=== PATIENT | male | born 1940 | race Asian ===

== ENCOUNTER 2020-09-20 08:04 | Inpatient (IN) | payer OTHER ==
[2020-09-20 08:36] LABS: BASO % 0.6 % (0-2.0); EOS % 1.5 % (0-4.5); HEMATOCRIT 37.5 % (35.4-49); HEMOGLOBIN 12.3 GM/dL (11.7-16.9); LYMPH % 13.3 % (8-40); MCH 29.9 pg (25.7-33.7); MCHC 32.9 g/dl (32.0-35.9); MEAN CELL VOLUME 90.7 fl (80-96); MEAN PLT VOLUME 9.5 fl (7.5-11.1); MONO % 3.8 % (3.8-10.2); NEUT % 80.8 % (42.8-82.8); PLATELET COUNT 144 10^3/uL (134-434); RBC 4.13 M/mm3 (4.00-5.60); WHITE BLOOD COUNT 8.7 K/mm3 (4.0-10.0)
[2020-09-20 08:43] LABS: INR 1.02 (0.83-1.09); PROTHROMBIN TIME (PATIENT) 12.5 SEC (9.7-13.0)
[2020-09-20 08:46] LABS: ACTIVATED PTT 24.1 SECONDS (25.2-36.5)
[2020-09-20 09:04] LABS: ALBUMIN 3.7 g/dl (3.4-5.0); BLOOD UREA NITROGEN 54.3 mg/dL (7-18); CALCIUM 9.4 mg/dL (8.5-10.1)
[2020-09-20 09:06] LABS: CREATININE 2.8 mg/dL (0.55-1.3)
[2020-09-20 09:08] LABS: BILIRUBIN,TOTAL 0.6 mg/dL (0.2-1); TOT PROT 6.8 g/dl (6.4-8.2)
[2020-09-20 09:11] LABS: N-TERMINAL BNP 1956.1 pg/ml (5-450)
[2020-09-20] MEDS ORDERED: GLUCAGON 1 MG KIT IVPUSH ONE ×2 (09:37→10:24)
[2020-09-20] MEDS ORDERED: ONDANSETRON 4 MG/2 ML VIAL IVPUSH ONE (09:37)
[2020-09-20] MEDS ORDERED: CALCIUM GLUCONATE 10% - 1,000 MG/10 ML VIAL IVPUSH ONE ×2 (09:39→09:49)
[2020-09-20] MEDS ORDERED: ONDANSETRON 4 MG/2 ML VIAL ONE (09:39)
[2020-09-20] MEDS ORDERED: ATROPINE SULFATE 1 MG/10 ML DISP.SYRIN IVPUSH ONE (09:46)
[2020-09-20] MEDS ORDERED: CALCIUM GLUCONATE 10% - 1,000 MG/10 ML VIAL ONE ×2 (09:47→10:01)
[2020-09-20] MEDS ORDERED: ATROPINE SULFATE 1 MG/10 ML DISP.SYRIN ONE (09:47)
[2020-09-20] MEDS ORDERED: DEXTROSE 50%-WATER - 25 GM/50 ML VIAL IVPUSH PRN (10:12)
[2020-09-20] MEDS ORDERED: INSULIN REGULAR 100 UNITS in SODIUM CHLORIDE 99 ML IVPB SCH (10:15)
[2020-09-20] MEDS ORDERED: DEXTROSE 10%-WATER - 1,000 ML IV SCH (10:15)
[2020-09-20] MEDS ORDERED: GLUCAGON IVPB SCH (10:45)
[2020-09-20] MEDS ORDERED: WATER IVPB SCH (10:45)
[2020-09-20] MEDS ORDERED: DEXTROSE 5% IVPB SCH (10:45)
[2020-09-20 11:42] LABS: MAGNESIUM 1.7 mg/dL (1.8-2.4)
[2020-09-20] MEDS ORDERED: MAGNESIUM SULF 50% (8.12 MEQ/2 ML-1 GM VIAL) IVPB ONE (11:50)
[2020-09-20 11:51] LABS: N-TERMINAL BNP 1369.1 pg/ml (5-450)
[2020-09-20 12:14] LABS: CHLORIDE 104 mmol/L (98-107); SODIUM 133 mmol/L (136-145)
[2020-09-20 12:15] LABS: ANION GAP 10 MMOL/L (8-16); BLOOD UREA NITROGEN 49.9 mg/dL (7-18); CALCIUM 8.8 mg/dL (8.5-10.1); CO2 19 mmol/L (21-32)
[2020-09-20 12:20] LABS: CREATININE 2.6 mg/dL (0.55-1.3); GLUCOSE,RANDOM 538 mg/dL (74-106)
[2020-09-20] MEDS: LACTATED RINGERS SOLUTION 1,000 ML/1,000 ML INFUS.BAG IV SCH (14:15)
[2020-09-20 14:41] LABS: CHLORIDE 107 mmol/L (98-107); SODIUM 135 mmol/L (136-145)
[2020-09-20 14:44] LABS: ANION GAP 11 MMOL/L (8-16); BLOOD UREA NITROGEN 46.1 mg/dL (7-18); CO2 17 mmol/L (21-32)
[2020-09-20 14:48] LABS: CREATININE 2.4 mg/dL (0.55-1.3)
[2020-09-20 14:51] LABS: CALCIUM 7.2 mg/dL (8.5-10.1); GLUCOSE,RANDOM 521 mg/dL (74-106)
[2020-09-20] MEDS: HEPARIN NA (PORCINE) 5,000 UNITS/ML 1ML VIAL SQ SCH ×2 (15:00→22:17)
[2020-09-20] MEDS ORDERED: INSULIN SLIDING SCALE (NOVOLOG) 1 VIAL SQ SCH ×2 (15:30)
[2020-09-20] MEDS ORDERED: DEXTROSE 50%-WATER 25 GM/50 ML DISP.SYRIN ONE (20:40)
[2020-09-20] MEDS ORDERED: DEXTROSE 50%-WATER 25 GM/50 ML DISP.SYRIN IVPUSH PRN (21:14)
[2020-09-20] MEDS ORDERED: DOPAMINE 400 MG/D5W - 400,000 MCG/250 ML INFUS.BAG IVPB SCH ×2 (22:02→22:15)
[2020-09-20] MEDS: CHLORHEXIDINE GLUCONATE 4% CLEANSER FOR DECOLONIZATION TP SCH (22:17)
[2020-09-20] MEDS: MUPIROCIN 2% TOPICAL OINTMENT FOR DECOLONIZATION NS SCH (22:17)
[2020-09-20] MEDS: ATORVASTATIN CA 10 MG TABLET (FP) PO SCH (22:18)
[2020-09-21] MEDS ORDERED: NOREPINEPHRINE NS PREMIX 8,000 MCG/500 ML BAG IVPB SCH
[2020-09-21] MEDS: LACTATED RINGERS SOLUTION 1,000 ML/1,000 ML INFUS.BAG IV SCH ×3 (02:03→20:53)
[2020-09-21 02:23] LABS: EPI CELLS 12 /uL (0-25.1); HYALINE CASTS 2 /uL (0-3.1); URINE APPEARANCE CLOUDY; URINE BACTERIA 14 /uL (0-1359); URINE BILIRUBIN NEGATIVE (NEGATIVE); URINE COLOR DK YELLOW; URINE GLUCOSE (UA) 3+ (NEGATIVE); URINE KETONE NEGATIVE (NEGATIVE); URINE LEUK ESTERASE NEGATIVE (NEGATIVE); URINE NITRITE NEGATIVE (NEGATIVE); URINE PROTEIN 1+ (NEGATIVE); URINE RBC 17 /uL (0-23.9); URINE UROBILINOGEN 0.2 mg/dL (0.2-1.0); URINE WBC 13 /uL (0-25.8)
[2020-09-21] MEDS: HEPARIN NA (PORCINE) 5,000 UNITS/ML 1ML VIAL SQ SCH ×3 (06:00→22:42)
[2020-09-21 07:11] LABS: BASO % 0.1 % (0-2.0); EOS % 0.1 % (0-4.5); HEMATOCRIT 35.5 % (35.4-49); HEMOGLOBIN 11.6 GM/dL (11.7-16.9); MCH 29.5 pg (25.7-33.7); MCHC 32.7 g/dl (32.0-35.9); MEAN CELL VOLUME 90.2 fl (80-96); MEAN PLT VOLUME 8.9 fl (7.5-11.1); MONO % 9.8 % (3.8-10.2); PLATELET COUNT 140 10^3/uL (134-434); RBC 3.94 M/mm3 (4.00-5.60); RDW 13.4 % (11.9-15.9); WHITE BLOOD COUNT 13.9 K/mm3 (4.0-10.0)
[2020-09-21 07:17] LABS: INR 1.02 (0.83-1.09); PROTHROMBIN TIME (PATIENT) 12.5 SEC (9.7-13.0)
[2020-09-21 07:19] LABS: BLOOD UREA NITROGEN 56.9 mg/dL (7-18); MAGNESIUM 1.5 mg/dL (1.8-2.4)
[2020-09-21 07:22] LABS: CREATININE 2.4 mg/dL (0.55-1.3); PHOSPHOROUS 4.3 mg/dL (2.5-4.9)
[2020-09-21 07:23] LABS: BILIRUBIN,TOTAL 0.6 mg/dL (0.2-1)
[2020-09-21 07:24] LABS: TOT PROT 5.6 g/dl (6.4-8.2)
[2020-09-21 07:33] LABS: ALBUMIN 2.9 g/dl (3.4-5.0); CALCIUM 8.3 mg/dL (8.5-10.1)
[2020-09-21] MEDS ORDERED: PT OWN MED DRAWER 7, Y5N ONE (10:58)
[2020-09-21] MEDS: ASPIRIN COATED 81 MG TABLET.EC PO SCH (10:59)
[2020-09-21] MEDS: MULTIVITAMINS (DAILY MVI) TABLET (FP) PO SCH (10:59)
[2020-09-21] MEDS: MEMANTINE HCL 5 MG TABLET (UD) PO SCH (11:00)
[2020-09-21] MEDS: SERTRALINE HCL 25 MG TABLET (FP) PO SCH (11:00)
[2020-09-21] MEDS: MUPIROCIN 2% TOPICAL OINTMENT FOR DECOLONIZATION NS SCH ×2 (11:01→22:42)
[2020-09-21] MEDS ORDERED: MAGNESIUM SULFATE IN WATER 2 GM/50 ML IVPB IVPB ONE (13:45)
[2020-09-21] MEDS ORDERED: hydrALAZINE HCL 20 MG/ML VIAL IVPUSH ONE (16:10)
[2020-09-21] MEDS ORDERED: METOPROLOL TARTRATE 5 MG/5 ML VIAL IVPUSH ONE (19:15)
[2020-09-21] MEDS ORDERED: AMIODARONE IN DEXTROSE,ISO-OSM 360 MG/200 ML BAG IVPB ONE (19:49)
[2020-09-21] MEDS ORDERED: AMIODARONE IN DEXTROSE,ISO-OSM 150 MG/100 ML BAG IVPB ONE (19:49)
[2020-09-21] MEDS ORDERED: NITROGLYCERIN 2% OINTMENT - 1GM PACKET TD ONE (22:35)
[2020-09-21] MEDS: ATORVASTATIN CA 10 MG TABLET (FP) PO SCH (22:42)
[2020-09-21] MEDS: CHLORHEXIDINE GLUCONATE 4% CLEANSER FOR DECOLONIZATION TP SCH (22:42)
[2020-09-22] MEDS ORDERED: NITROGLYCERIN 2% OINTMENT - 1GM PACKET TD ONE (00:15)
[2020-09-22] MEDS: NITROGLYCERIN 25MG/D5W 250ML 25 MG/250 ML ML IVPB SCH ×2 (02:54→09:18)
[2020-09-22] MEDS: HEPARIN NA (PORCINE) 5,000 UNITS/ML 1ML VIAL SQ SCH ×3 (06:07→22:22)
[2020-09-22] MEDS: AMIODARONE IN DEXTROSE,ISO-OSM 360 MG/200 ML BAG IVPB SCH ×2 (06:15→16:45)
[2020-09-22 06:26] LABS: BASO % 0.2 % (0-2.0); EOS % 0.2 % (0-4.5); HEMATOCRIT 32.8 % (35.4-49); HEMOGLOBIN 10.9 GM/dL (11.7-16.9); LYMPH % 9.2 % (8-40); MCH 29.8 pg (25.7-33.7); MCHC 33.1 g/dl (32.0-35.9); MEAN PLT VOLUME 8.5 fl (7.5-11.1); MONO % 8.8 % (3.8-10.2); NEUT % 81.6 % (42.8-82.8); PLATELET COUNT 133 10^3/uL (134-434); RBC 3.65 M/mm3 (4.00-5.60); RDW 13.7 % (11.9-15.9); WHITE BLOOD COUNT 11.5 K/mm3 (4.0-10.0)
[2020-09-22] MEDS ORDERED: LACTATED RINGERS SOLUTION 1,000 ML/1,000 ML INFUS.BAG IV SCH (06:43)
[2020-09-22 06:47] LABS: ALBUMIN 2.6 g/dl (3.4-5.0); BLOOD UREA NITROGEN 55.1 mg/dL (7-18); MAGNESIUM 1.6 mg/dL (1.8-2.4)
[2020-09-22 06:50] LABS: CREATININE 1.8 mg/dL (0.55-1.3)
[2020-09-22 06:51] LABS: BILIRUBIN,TOTAL 0.4 mg/dL (0.2-1)
[2020-09-22] MEDS: NIFEdipine E.R 60 MG TABLET PO SCH ×2 (08:39→09:02)
[2020-09-22] MEDS ORDERED: PT OWN MED DRAWER 7, Y5N ONE (09:01)
[2020-09-22] MEDS: MEMANTINE HCL 5 MG TABLET (UD) PO SCH (09:02)
[2020-09-22] MEDS: SERTRALINE HCL 25 MG TABLET (FP) PO SCH (09:02)
[2020-09-22] MEDS: ASPIRIN COATED 81 MG TABLET.EC PO SCH (09:02)
[2020-09-22] MEDS: MULTIVITAMINS (DAILY MVI) TABLET (FP) PO SCH (09:02)
[2020-09-22] MEDS: MUPIROCIN 2% TOPICAL OINTMENT FOR DECOLONIZATION NS SCH ×2 (09:02→22:23)
[2020-09-22 11:43] VITALS: BMI 26.1
[2020-09-22] MEDS ORDERED: MAGNESIUM OXIDE 400 MG TABLET (FP) PO ONE (14:13)
[2020-09-22] MEDS: ATORVASTATIN CA 10 MG TABLET (FP) PO SCH (22:22)
[2020-09-22] MEDS: CHLORHEXIDINE GLUCONATE 4% CLEANSER FOR DECOLONIZATION TP SCH (22:22)
[2020-09-23] MEDS: HEPARIN NA (PORCINE) 5,000 UNITS/ML 1ML VIAL SQ SCH ×3 (05:32→22:44)
[2020-09-23] MEDS: AMIODARONE IN DEXTROSE,ISO-OSM 360 MG/200 ML BAG IVPB SCH (06:27)
[2020-09-23 06:45] LABS: HEMATOCRIT 34.8 % (35.4-49); HEMOGLOBIN 11.7 GM/dL (11.7-16.9); MCH 30.2 pg (25.7-33.7); MCHC 33.6 g/dl (32.0-35.9); MEAN PLT VOLUME 9.4 fl (7.5-11.1); PLATELET COUNT 140 10^3/uL (134-434); RBC 3.87 M/mm3 (4.00-5.60); WHITE BLOOD COUNT 9.7 K/mm3 (4.0-10.0)
[2020-09-23 07:06] LABS: BLOOD UREA NITROGEN 45.7 mg/dL (7-18)
[2020-09-23 07:07] LABS: CALCIUM 8.5 mg/dL (8.5-10.1); MAGNESIUM 1.9 mg/dL (1.8-2.4)
[2020-09-23 07:10] LABS: CREATININE 1.6 mg/dL (0.55-1.3); PHOSPHOROUS 2.1 mg/dL (2.5-4.9)
[2020-09-23] MEDS: ASPIRIN COATED 81 MG TABLET.EC PO SCH (09:06)
[2020-09-23] MEDS: NIFEdipine E.R 60 MG TABLET PO SCH (09:06)
[2020-09-23] MEDS: SERTRALINE HCL 25 MG TABLET (FP) PO SCH (09:13)
[2020-09-23] MEDS: MULTIVITAMINS (DAILY MVI) TABLET (FP) PO SCH (09:13)
[2020-09-23] MEDS ORDERED: PT OWN MED DRAWER 7, Y5N ONE (09:13)
[2020-09-23] MEDS: MEMANTINE HCL 5 MG TABLET (UD) PO SCH (09:14)
[2020-09-23] MEDS: MUPIROCIN 2% TOPICAL OINTMENT FOR DECOLONIZATION NS SCH ×2 (10:36→22:44)
[2020-09-23] MEDS: ATORVASTATIN CA 10 MG TABLET (FP) PO SCH (22:44)
[2020-09-23] MEDS: CHLORHEXIDINE GLUCONATE 4% CLEANSER FOR DECOLONIZATION TP SCH (22:44)
[2020-09-24] MEDS: HEPARIN NA (PORCINE) 5,000 UNITS/ML 1ML VIAL SQ SCH ×3 (07:00→21:27)
[2020-09-24] MEDS ORDERED: PT OWN MED DRAWER 7, Y5N ONE (08:52)
[2020-09-24] MEDS: AMIODARONE HCL 200 MG TABLET PO SCH (09:15)
[2020-09-24] MEDS: SERTRALINE HCL 25 MG TABLET (FP) PO SCH (09:15)
[2020-09-24] MEDS: MEMANTINE HCL 5 MG TABLET (UD) PO SCH (09:15)
[2020-09-24] MEDS: MULTIVITAMINS (DAILY MVI) TABLET (FP) PO SCH (09:15)
[2020-09-24] MEDS: ASPIRIN COATED 81 MG TABLET.EC PO SCH (09:16)
[2020-09-24] MEDS ORDERED: NIFEdipine E.R 60 MG TABLET PO SCH (10:00)
[2020-09-24 12:06] LABS: BASO % 0.5 % (0-2.0); EOS % 1.3 % (0-4.5); HEMATOCRIT 32.6 % (35.4-49); LYMPH % 17.3 % (8-40); MCH 30.2 pg (25.7-33.7); MCHC 33.7 g/dl (32.0-35.9); MEAN CELL VOLUME 89.8 fl (80-96); MEAN PLT VOLUME 9.1 fl (7.5-11.1); MONO % 11.7 % (3.8-10.2); NEUT % 69.2 % (42.8-82.8); PLATELET COUNT 146 10^3/uL (134-434); RBC 3.63 M/mm3 (4.00-5.60); WHITE BLOOD COUNT 9.8 K/mm3 (4.0-10.0)
[2020-09-24 12:26] LABS: BLOOD UREA NITROGEN 38.8 mg/dL (7-18); CALCIUM 8.3 mg/dL (8.5-10.1)
[2020-09-24 12:27] LABS: ALBUMIN 2.6 g/dl (3.4-5.0); MAGNESIUM 1.9 mg/dL (1.8-2.4)
[2020-09-24 12:30] LABS: CREATININE 1.3 mg/dL (0.55-1.3)
[2020-09-24 12:31] LABS: BILIRUBIN,TOTAL 0.6 mg/dL (0.2-1); TOT PROT 5.4 g/dl (6.4-8.2)
[2020-09-24] MEDS: MUPIROCIN 2% TOPICAL OINTMENT FOR DECOLONIZATION NS SCH ×2 (12:55→21:27)
[2020-09-24] MEDS ORDERED: NAPH,MB-DB/K PH,MBDB POWDER PACKET PO ONE (16:45)
[2020-09-24] MEDS: ATORVASTATIN CA 10 MG TABLET (FP) PO SCH (21:27)
[2020-09-24] MEDS: CHLORHEXIDINE GLUCONATE 4% CLEANSER FOR DECOLONIZATION TP SCH (21:27)
[2020-09-24] MEDS ORDERED: METOPROLOL TARTRATE 5 MG/5 ML VIAL IVPUSH ONE (23:21)
[2020-09-25] MEDS ORDERED: METOPROLOL TARTRATE 5 MG/5 ML VIAL IVPUSH ONE ×2 (01:09→05:02)
[2020-09-25] MEDS: HEPARIN NA (PORCINE) 5,000 UNITS/ML 1ML VIAL SQ SCH ×4 (04:12→23:00)
[2020-09-25] MEDS ORDERED: METOPROLOL TARTRATE 5 MG/5 ML VIAL IVPUSH PRN (05:42)
[2020-09-25 07:03] LABS: HEMATOCRIT 28.8 % (35.4-49); HEMOGLOBIN 9.5 GM/dL (11.7-16.9); MCHC 33.1 g/dl (32.0-35.9); MEAN CELL VOLUME 90.7 fl (80-96); MEAN PLT VOLUME 9.4 fl (7.5-11.1); PLATELET COUNT 147 10^3/uL (134-434); RBC 3.18 M/mm3 (4.00-5.60); RDW 14.3 % (11.9-15.9); WHITE BLOOD COUNT 8.2 K/mm3 (4.0-10.0)
[2020-09-25 07:26] LABS: ALBUMIN 2.4 g/dl (3.4-5.0); CALCIUM 7.9 mg/dL (8.5-10.1)
[2020-09-25 07:27] LABS: BLOOD UREA NITROGEN 39.3 mg/dL (7-18); MAGNESIUM 1.8 mg/dL (1.8-2.4)
[2020-09-25 07:30] LABS: CREATININE 1.3 mg/dL (0.55-1.3); PHOSPHOROUS 2.2 mg/dL (2.5-4.9)
[2020-09-25 07:31] LABS: BILIRUBIN,TOTAL 0.6 mg/dL (0.2-1); TOT PROT 4.8 g/dl (6.4-8.2)
[2020-09-25] MEDS ORDERED: NIFEdipine E.R. 90 MG TABLET PO SCH (08:10)
[2020-09-25] MEDS ORDERED: PT OWN MED DRAWER 7, Y5N ONE (10:42)
[2020-09-25] MEDS: NIFEdipine E.R. 90 MG TABLET PO SCH (10:44)
[2020-09-25] MEDS: ASPIRIN COATED 81 MG TABLET.EC PO SCH (10:44)
[2020-09-25] MEDS: AMIODARONE HCL 200 MG TABLET PO SCH (10:45)
[2020-09-25] MEDS: MULTIVITAMINS (DAILY MVI) TABLET (FP) PO SCH (10:45)
[2020-09-25] MEDS: NAPH,MB-DB/K PH,MBDB POWDER PACKET PO SCH ×3 (10:46→23:00)
[2020-09-25] MEDS: MEMANTINE HCL 5 MG TABLET (UD) PO SCH (10:46)
[2020-09-25] MEDS: SERTRALINE HCL 25 MG TABLET (FP) PO SCH (10:47)
[2020-09-25] MEDS: MUPIROCIN 2% TOPICAL OINTMENT FOR DECOLONIZATION NS SCH ×2 (10:52→23:00)
[2020-09-25] MEDS: METOPROLOL TARTRATE 25 MG TABLET (FP) PO SCH ×2 (17:01→23:00)
[2020-09-25 17:40] LABS: PH,URINE 6.5 (5.0-8.0); URINE APPEARANCE CLEAR; URINE BILIRUBIN NEGATIVE (NEGATIVE); URINE COLOR YELLOW; URINE GLUCOSE (UA) TRACE (NEGATIVE); URINE KETONE NEGATIVE (NEGATIVE); URINE LEUK ESTERASE NEGATIVE (NEGATIVE); URINE NITRITE NEGATIVE (NEGATIVE); URINE PROTEIN TRACE (NEGATIVE)
[2020-09-25] MEDS: ATORVASTATIN CA 10 MG TABLET (FP) PO SCH (23:00)
[2020-09-25] MEDS: CHLORHEXIDINE GLUCONATE 4% CLEANSER FOR DECOLONIZATION TP SCH (23:00)
[2020-09-26] MEDS: NAPH,MB-DB/K PH,MBDB POWDER PACKET PO SCH ×3 (05:53→21:28)
[2020-09-26 06:45] LABS: HEMATOCRIT 26.6 % (35.4-49); HEMOGLOBIN 8.8 GM/dL (11.7-16.9); MCH 30.4 pg (25.7-33.7); MCHC 33.3 g/dl (32.0-35.9); MEAN CELL VOLUME 91.3 fl (80-96); MEAN PLT VOLUME 9.7 fl (7.5-11.1); PLATELET COUNT 156 10^3/uL (134-434); RBC 2.91 M/mm3 (4.00-5.60); RDW 14.3 % (11.9-15.9); WHITE BLOOD COUNT 8.7 K/mm3 (4.0-10.0)
[2020-09-26 07:09] LABS: ALBUMIN 2.5 g/dl (3.4-5.0); CALCIUM 7.8 mg/dL (8.5-10.1)
[2020-09-26 07:10] LABS: BLOOD UREA NITROGEN 41.6 mg/dL (7-18); MAGNESIUM 1.8 mg/dL (1.8-2.4)
[2020-09-26 07:12] LABS: PHOSPHOROUS 3.6 mg/dL (2.5-4.9)
[2020-09-26 07:13] LABS: CREATININE 1.3 mg/dL (0.55-1.3)
[2020-09-26 07:14] LABS: BILIRUBIN,TOTAL 0.7 mg/dL (0.2-1)
[2020-09-26] MEDS: MUPIROCIN 2% TOPICAL OINTMENT FOR DECOLONIZATION NS SCH ×2 (10:00→21:24)
[2020-09-26] MEDS ORDERED: PT OWN MED DRAWER 7, Y5N ONE (11:38)
[2020-09-26] MEDS: NIFEdipine E.R. 90 MG TABLET PO SCH (11:39)
[2020-09-26] MEDS: METOPROLOL TARTRATE 25 MG TABLET (FP) PO SCH ×2 (11:40→21:28)
[2020-09-26] MEDS: MULTIVITAMINS (DAILY MVI) TABLET (FP) PO SCH (11:40)
[2020-09-26] MEDS: SERTRALINE HCL 25 MG TABLET (FP) PO SCH (11:41)
[2020-09-26] MEDS: ASPIRIN COATED 81 MG TABLET.EC PO SCH (11:41)
[2020-09-26] MEDS: AMIODARONE HCL 200 MG TABLET PO SCH (11:41)
[2020-09-26] MEDS: MEMANTINE HCL 5 MG TABLET (UD) PO SCH (11:42)
[2020-09-26] MEDS: NYSTATIN 500,000 UNITS/5 ML SUSPENSION PO SCH (18:12)
[2020-09-26] MEDS: CHLORHEXIDINE GLUCONATE 4% CLEANSER FOR DECOLONIZATION TP SCH (21:26)
[2020-09-26] MEDS: HEPARIN NA (PORCINE) 5,000 UNITS/ML 1ML VIAL SQ SCH (21:27)
[2020-09-26] MEDS: ATORVASTATIN CA 10 MG TABLET (FP) PO SCH (21:28)
[2020-09-26 22:34] VITALS: TEMP 99.2
[2020-09-27] MEDS: NYSTATIN 500,000 UNITS/5 ML SUSPENSION PO SCH (01:09)
[2020-09-27 04:32] VITALS: BP 124/68; PULSE 64
== END 2020-09-26 20:00 | disposition short-term general hospital (02) | DRG 918 ==
LOC: JER 08:04 → JERBED 09:58 → JICU 12:03 → J2W 09-24 18:43
PROVIDERS: ADMIT Internal Medicine Pulmonary Disease; ATTEND Internal Medicine
PROC: 02HV33Z Insertion of Infusion Device into Superior Vena Cava, Percutaneous Approach (ICD-10-PCS; principal; 2020-09-20)
DX: T44.7X1A Poisoning by beta-adrenoreceptor antagonists, accidental (unintentional), initial encounter (principal); N17.9 Acute kidney failure, unspecified; B37.0 Candidal stomatitis; F03.90 Unspecified dementia, unspecified severity, without behavioral disturbance, psychotic disturbance, mood disturbance, and anxiety; I10 Essential (primary) hypertension; N40.0 Benign prostatic hyperplasia without lower urinary tract symptoms; E87.5 Hyperkalemia; I12.9 Hypertensive chronic kidney disease with stage 1 through stage 4 chronic kidney disease, or unspecified chronic kidney disease; N18.9 Chronic kidney disease, unspecified; I95.2 Hypotension due to drugs; E78.5 Hyperlipidemia, unspecified; I71.4 Abdominal aortic aneurysm, without rupture; I25.10 Atherosclerotic heart disease of native coronary artery without angina pectoris; Y92.009 Unspecified place in unspecified non-institutional (private) residence as the place of occurrence of the external cause; R73.9 Hyperglycemia, unspecified; I48.91 Unspecified atrial fibrillation; I49.5 Sick sinus syndrome; J32.9 Chronic sinusitis, unspecified
CPT/HCPCS: 36415; 70450-TC; 71045-TC-FY; 76775-TC; 80048; 80053; 80307; 81003; 82550; 82553; 82570; 82962; 83735; 83880; 84100; 84156; 84439; 84443; 84484; 85025; 85027; 85610; 85730; 86850; 86900; 86901; 87086; 93005; 93010; 93306-TC; 99291; 99292; C9803; J0282; J1644; U0003; U0005